=== PATIENT | male | born 1985 | race Two or more races ===

== ENCOUNTER 2019-10-29 16:39 | Emergency (ER) | payer MEDICAID, OTHER ==
[~2019-10-29] VITALS: Ht 165.1 cm; Wt 76.2 kg
[2019-10-29 17:04] VITALS: BP 122/83
== END 2019-10-29 16:50 | disposition left against medical advice (07) ==
LOC: EDBD 16:39 → ER 16:39
DX: M79.605 Pain in left leg (principal); Z53.21 Procedure and treatment not carried out due to patient leaving prior to being seen by health care provider